=== PATIENT | female | born 1975 | race Caucasian/White ===

== ENCOUNTER 2017-04-06 14:27 | Emergency (ER) | payer OTHER ==
[~2017-04-06] VITALS: Ht 167.6 cm; Wt 61.6 kg
[~2017-04-06 14:27] MED LIST: PHEN12.5 PR; PROM25TA5 PO; Z.0.NO CURRENT MEDS
[2017-04-06 14:41] VITALS: BP 125/66; PULSE 70; RESP 18; TEMP 98.2; O2SAT 99
--- NOTE | 2017-04-06 14:44 | PD ---
HPI Chief Complaint: SYNCOPE Time Seen by Provider: 14:33 Travel History International Travel<30 days: No Contact w/Intl Traveler<30days: No Traveled to known affect area: No History of Present Illness HPI WHILE AT [facility] FOR BREAST BIOPSY SHE APPARENTLY PASSED OUT AND "FACE PLANTED" AND WAS SENT HERE FOR FURTHER EVALUATION...PATIENT C/O HEADACHE, [place] , 9/10, ASSOC WITH NAUSEA AND LIGHTHEADEDNES (HOWEVER PATIENT TOOK AN OLD COMPAZINE VALIDATION INTERN AND IS NO LONGER NAUSEOUS). PFSH Past Medical History Diminished Hearing: No Gastrointestinal Disorders: Yes (COLITIS) Past Surgical History Abdominal Surgery: Yes (MULT COLONOSCOPIES) Other Surgery: Yes (breast augmentation) Social History Alcohol Use: Yes (SOCIAL) Tobacco Use: No Substance Use: No Allergies-Medications (Allergen,Severity, Reaction): Coded Allergies: No Known Allergies (Verified , 03/10/15) Reported Meds & Prescriptions Reported Meds & Active Scripts Active Zofran Odt (Ondansetron Odt) 4 Mg Tab 4 Mg SL Q6HR PRN Ultram (Tramadol HCl) 50 Mg Tab 50 Mg PO Q4H PRN Review of Systems Except as stated in HPI: all other systems reviewed are Neg HENT: Positive: Headaches Physical Exam Narrative GENERAL: SKIN: Warm and dry. HEAD: LEFT FRONTAL SCALP HEMATOMA NOTED GOLF BALL DIAMETER. Normocephalic. EYES: Pupils equal and round. No scleral icterus. No injection or drainage. ENT: No nasal bleeding or discharge. Mucous membranes pink and moist. NECK: Trachea midline. No JVD. CARDIOVASCULAR: Regular rate and rhythm. RESPIRATORY: No accessory muscle use. Clear to auscultation. Breath sounds equal bilaterally. GASTROINTESTINAL: Abdomen soft, non-tender, nondistended. Hepatic and splenic margins not palpable. MUSCULOSKELETAL: Extremities without clubbing, cyanosis, or edema. No obvious deformities. NEUROLOGICAL: Awake and alert. No obvious cranial nerve deficits. Motor grossly within normal limits. Five out of 5 muscle strength in the arms and legs. Normal speech. PSYCHIATRIC: Appropriate mood and affect; insight and judgment normal. Data Data Last Documented VS Vital Signs Date Time Temp Pulse Resp B/P Pulse Ox O2 Delivery O2 Flow Rate FiO2 04/06/17 15:16 59 18 106/56 100 Room Air 04/06/17 14:41 98.2 Orders Electrocardiogram (04/06/17 14:33) Ed Urine Pregnancytest Poc (04/06/17 14:33) Complete Blood Count With Diff (04/06/17 14:33) Comprehensive Metabolic Panel (04/06/17 14:33) B-Type Natriuretic Peptide (04/06/17 14:33) Ckmb (Isoenzyme) Profile (04/06/17 14:33) Troponin I (04/06/17 14:33) Act Partial Throm Time (Ptt) (04/06/17 14:33) Prothrombin Time / Inr (Pt) (04/06/17 14:33) Urinalysis - C+S If Indicated (04/06/17 14:33) Chest, Single Ap (04/06/17 14:33) Blood Glucose (04/06/17 14:33) Ecg Monitoring (04/06/17 14:33) Iv Access Insert/Monitor (04/06/17 14:33) Oximetry (04/06/17 14:33) Sodium Chloride 0.9% Flush (Ns Flush) (04/06/17 14:45) Orthostatic Vital Signs (04/06/17 14:33) Ondansetron Inj (Zofran Inj) (04/06/17 15:00) Hydromorphone Pf Inj (Dilaudid Pf Inj) (04/06/17 15:00) MDM Medical Decision Making Medical Screen Exam Complete: Yes Emergency Medical Condition: Yes Medical Record Reviewed: Yes Interpretation(s) NSR 62, FIRST DEGREE AV BLOCK, NONSTEMI PATTERN Differential Diagnosis SCALP CONTUSION V VASOVAGAL SYNCOPE V ICH V SKULL FX Narrative Course RECEIVED CT HEAD W/O CONTRAST FROM [facility] IMAGING: IMPRESSION BY DR CHARLES LAURENT MD "NEGATIVE CT HEAD WITHOUT CONTRAST"...ACCUCHECK NL, NEG ORTHOSTATIC VITALS, NL CBC, NL CMP, WILL REFER TO NEURO FOR FOLLOWUP OF LIKELY CONCUSSION AND POST CONCUSSION SYNDROME Diagnosis Primary Impression: S/P VASOVAGAL SYNCOPE Additional Impressions: Contusion of scalp, initial encounter CONCUSSION Referrals: Micheline Olivia MD FOR FURTHER FOLLOW UP FOR YOUR CONCUSSION Patient Instructions: General Instructions, Post Concussion Syndrome (ED), Syncope (ED) Scripts Ondansetron Odt (Zofran Odt)4 Mg Tab4 Mg SL Q6HR PRN (Nausea/Vomiting) #28 TAB Prov:Oz Piña MD 04/06/17 Tramadol (Ultram)50 Mg Tab50 Mg PO Q4H PRN (PAIN) #28 TAB Prov:Oz Piña MD 04/06/17 Disposition: 01 DISCHARGE HOME Condition: Stable Oz Piña MD Apr 06, 2017 14:44
[2017-04-06] MEDS ORDERED: SODIUM CHLORIDE 0.9% FLUSH 10 ML FLUSH IVF PRN (14:45)
[2017-04-06 14:56] VITALS: BP_SYST 113; BP_SYST 117; BP_SYST 121; BP_DIAS 61; BP_DIAS 70; BP_DIAS 71
[2017-04-06 14:58] VITALS: O2SAT 99
[2017-04-06] MEDS ORDERED: HYDROmorphone HCL PF 1 MG/ML VIAL IV PUSH ONE (15:00)
[2017-04-06] MEDS ORDERED: ONDANSETRON HCL 4 MG/2 ML VIAL IV PUSH ONE (15:00)
[2017-04-06 15:16] VITALS: BP 106/56; PULSE 59; RESP 18; O2SAT 100
[2017-04-06 15:16] LABS: BLOOD, URINE NEG (NEG); GLUCOSE,URINE NEG (NEG); KETONE, URINE 15 mg/dL (NEG); NITRITE,URINE NEG (NEG); PH, URINE 8.5 (5.0-8.5)
[2017-04-06 15:16] LABS: AUTOMATED NEUTROPHIL # 8.2 TH/MM3 (1.8-7.7); BASOPHIL # 0.4 TH/MM3 (0-0.2); BASOPHIL % 4.2 % (0.0-2.0); EOSINOPHIL % 0.2 % (0.0-4.0); HEMATOCRIT 41.5 % (35.0-46.0); LYMPH % 10.7 % (9.0-44.0); LYMPHOCYTE # 1.1 TH/MM3 (1.0-4.8); MEAN CORPUSCULAR HEMOGLOBIN 32.9 PG (27.0-34.0); MEAN CORPUSCULAR HGB CONC 33.9 % (32.0-36.0); MONO % 3.1 % (0.0-8.0); NEUT % 81.8 % (16.0-70.0); PLATELET COUNT 280 TH/MM3 (150-450); RED BLOOD COUNT 4.28 MIL/MM3 (4.00-5.30); RED CELL DISTRIBUTION WIDTH 12.4 % (11.6-17.2)
[2017-04-06] MEDS ORDERED: ZOFR4TAB3 SL (15:23)
[2017-04-06] MEDS ORDERED: ULTR50TA5 PO (15:23)
[2017-04-06 15:37] LABS: COMMENT (UR) CULT NOT INDICATED; CULTURE IF INDICATED CULT NOT INDICATED; METHOD OF COLLECTION VOIDED; MUCUS URINE FEW /lpf (OCC); SQUAMOUS EPITHELIAL CELL URINE 0-2 /hpf (0-5); URINE COLOR YELLOW (YELLW/STRAW); WBC, URINE 0-2 /hpf (0-5)
[2017-04-06 15:41] LABS: HEMO FLAGS DIFF FINAL
--- NOTE | 2017-04-06 15:44 | RADRPT ---
EXAM DATE/TIME: 04/06/2017 14:58 [facility] COMPARISON: No previous studies available for comparison. INDICATIONS : Syncopal episode.Patient passed out & "face planted" post right breast biopsy @ [facility] today. MEDICAL HISTORY : Colitis. SURGICAL HISTORY : Breast augmentation. ENCOUNTER: Initial ACUITY: 1 day PAIN SCORE: 0/10 LOCATION: chest FINDINGS: A single view of the chest demonstrates the lungs to be symmetrically aerated without evidence of mas s, infiltrate or effusion. The cardiomediastinal contours are unremarkable. Osseous structures are intact. CONCLUSION: No acute disease. Jair Brandt MD on April 06, 2017 at 15:41 Board Certified Radiologist. This report was verified electronically.
[2017-04-06 15:45] LABS: CHLORIDE 105 MEQ/L (98-107); POTASSIUM 3.6 MEQ/L (3.5-5.1); SODIUM (NA) 139 MEQ/L (136-145)
[2017-04-06 15:49] LABS: ANION GAP 7 MEQ/L (5-15); BICARBONATE 26.9 MEQ/L (21.0-32.0); BLOOD UREA NITROGEN 18 MG/DL (7-18)
[2017-04-06 15:50] LABS: PROTHROMBIN TIME - PATIENT 10.7 SEC (9.8-11.6)
[2017-04-06 15:52] LABS: ALT (GPT) 19 U/L (10-53); AST (GOT) 13 U/L (15-37); GLOMERULAR FILTRATION RATE 86 ML/MIN (>89)
[2017-04-06 15:53] LABS: TOTAL BILIRUBIN ADULT 0.7 MG/DL (0.2-1.0)
[2017-04-06 15:55] LABS: ALKALINE PHOSPHATASE 49 U/L (45-117)
[2017-04-06 16:12] VITALS: BP 128/71
[2017-04-06 16:15] LABS: CREATINE KINASE 92 U/L (26-192)
--- NOTE | 2017-04-07 09:36 | EKG ---
Date Performed: 04/06/2017 Time Performed: 14:43:17 PTAGE: 41 years EKG: Sinus rhythm NORMAL ECG NO PREVIOUS TRACING DOCTOR: Black Loredo Interpretating Date/Time 04/07/2017 09:32:32
== END 2017-04-06 16:13 | disposition home or self-care (01) ==
LOC: PHED 14:27
DX: R55 Syncope and collapse (principal); S00.03XA Contusion of scalp, initial encounter; W19.XXXA Unspecified fall, initial encounter
CPT/HCPCS: 71010; 80053; 81001; 82550; 83880; 84484; 84703; 85025; 85610; 85730; 93005; 96374; 96375; 99285; J1170; J2405

== ENCOUNTER 2017-10-27 04:54 | Emergency (ER) | payer OTHER ==
[~2017-10-27] VITALS: Ht 167.6 cm; Wt 58.9 kg
[~2017-10-27 04:54] MED LIST changes: -PHEN12.5 PR; -PROM25TA5 PO; +TRAM50 PO; -Z.0.NO CURRENT MEDS; +ZOFR4TAB3 SL
[2017-10-27 05:00] VITALS: BP 123/60; PULSE 56; RESP 16; TEMP 97.8; O2SAT 100
[2017-10-27] MEDS ORDERED: NORC5TAB PO (07:25)
[2017-10-27] MEDS ORDERED: KETO1SOL3 RIGHT EYE (07:25)
--- NOTE | 2017-10-27 07:56 | PD ---
HPI . Eye pain Chief Complaint: Eye Problems/Injury Time Seen by Provider: 07:08 Travel History International Travel<30 days: No Contact w/Intl Traveler<30days: No Traveled to known affect area: No History of Present Illness HPI This patient presents with a 1 day history of right eye pain. She states that she believes that she scraped her eye with her contacts she was seen at an urgent care center last night and given prescriptions for erythromycin and Polysporin. She presents to us this morning stating that her symptoms are no better. She rates her pain 10/10. There have been no modifying factors. PFSH Past Medical History Medical History: Denies Significant Hx Diminished Hearing: No Gastrointestinal Disorders: Yes (COLITIS) Tetanus Vaccination: Unknown Influenza Vaccination: No ?: Not LMP: IUD Past Surgical History Abdominal Surgery: Yes (MULT COLONOSCOPIES) Other Surgery: Yes (breast augmentation) Social History Alcohol Use: Yes (SOCIAL) Tobacco Use: No Substance Use: No Allergies-Medications (Allergen,Severity, Reaction): Coded Allergies: No Known Allergies (Verified Adverse Reaction, Unknown, 10/27/17) Reported Meds & Prescriptions Reported Meds & Active Scripts Active [place] (Hydrocodone-Acetaminophen) 5 Mg-325 Mg Tab 1 Tab PO Q4H PRN Acular Opth Drops (Ketorolac Tromethamine) 0.5% Drops 1 Drop RIGHT EYE QID Review of Systems Except as stated in HPI: all other systems reviewed are Neg Eyes: Positive: Photophobia, Redness, Foreign Body Sensation, Pain Physical Exam Narrative GENERAL: Awake and alert and in no acute distress. SKIN: Warm and dry. HEAD: Normocephalic/atraumatic. EYES: Pupils are equal. Extraocular movements are intact. Right eye is mildly injected. Fluorescein staining has uptake near the center of her eye. It appears superficial. NECK: Normal range of motion. RESPIRATORY: Nonlabored respirations. MUSCULOSKELETAL: Atraumatic. NEUROLOGICAL: Nonfocal. PSYCHIATRIC: Appropriate mood and affect. Data Data Last Documented VS Vital Signs Date Time Temp Pulse Resp B/P (MAP) Pulse Ox O2 Delivery O2 Flow Rate FiO2 10/27/17 07:39 10/27/17 05:00 97.8 56 16 100 Orders Orders Ed Discharge Order (10/27/17 07:25) [facility] Medical Decision Making Medical Screen Exam Complete: Yes Emergency Medical Condition: Yes Differential Diagnosis Differential diagnosis of eye pain includes but is not limited to conjunctivitis , chemical irritation, corneal abrasion, acute angle-closure glaucoma. Narrative Course This patient presents with a chief complaint of right eye pain. She was diagnosed with a corneal abrasion last night in an urgent care center and placed on appropriate antibiotic ointment. She presents to us today saying that she is no better. Her exam shows a superficial corneal abrasion. I will discharge her with instructions to continue the current antibiotic ointment and add Acular and [place]. Diagnosis Primary Impression: Corneal abrasion of left eye due to contact lens Referrals: [facility] call for appointment Patient Instructions: General Instructions, Corneal Abrasion (ED) Departure Forms: Tests/Procedures Additional Instructions: Continue current medications. Scripts Hydrocodone-Acetaminophen ([place]) 5 Mg-325 Mg Tab 1 TAB PO Q4H Y for PAIN, #5 TAB 0 Refills Prov: Alexia Evans MD 10/27/17 Ketorolac Opth Drops (Acular Opth Drops) 0.5% Drops 1 DROP RIGHT EYE QID for Pain/Inflammation, #5 ML 0 Refills Prov: Alexia Evans MD 10/27/17 Disposition: 01 DISCHARGE HOME Condition: Stable Alexia Evans MD Oct 27, 2017 07:56
== END 2017-10-27 07:40 | disposition home or self-care (01) ==
LOC: PHED 04:54
DX: H18.822 Corneal disorder due to contact lens, left eye (principal)
CPT/HCPCS: 99283